=== PATIENT | female | born 2000 | race Caucasian/White ===

== ENCOUNTER 2022-06-11 07:22 | Inpatient (IN) ==
[2022-06-11] MEDS ORDERED: OXYTOCIN 30 UNITS/500 ML BAG IV PRN ×4 (07:57→20:08)
[2022-06-11] MEDS ORDERED: LIDOCAINE 1% LOCAL 20 ML VIAL INFIL PRN (07:57)
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
[2022-06-11 08:31] LABS: Hematocrit (blood only) 35.4 % (34.1-44.9); Hemoglobin 11.9 g/dl (12.0-16.0); Mean Corpuscular Hemoglobin 30.8 pg (25.0-34.0); Mean Corpuscular Hgb Conc 33.6 g/dL (32.0-36.0); Mean Corpuscular Volume 91.7 fL (80.0-100.0); Mean Platelet Volume 10.7 fL (9.4-12.3); Platelet Count 207 K/uL (130-400); RDW Coefficient of Variation 13.3 % (11.5-14.5); RDW Standard Deviation 44.5 fL (36.4-46.3); Red Blood Count 3.86 M/uL (3.93-5.22)
--- NOTE | 2022-06-11 09:01 | Communication Note ---
Date of Service: June 11, 2022 covid negative. Verbal consent obtained to place mello for ripening. speculum placed, mello threaded through the cervix. inflated wtih 35cc sterile water. speculum removed. tolerated well.
[2022-06-11] MEDS: LACTATED RINGER'S 1,000 ML IV PRN ×2 (09:28→15:58)
--- NOTE | 2022-06-11 14:49 | Labor Progress Brief Note ---
Date of Service June 11, 2022 Subjective patient noting some contractions, tolerating well. Assessment & Plan (1) Encounter for induction of labor: Plan continue to increase pit now by 2mU. fetus category one. epidural on demand. plan arom at some point. Admission and Anticipated Discharge Date Admission Date: June 11, 2022 Physical Exam Physical Exam: pulled gently on the bulb and it came out cx--3/50/-2/post--still hard to reach toco--q2-4min, pit at 7 efm--130s wtih mod variability, accels to 160s, no decels Results & Data ([facility]) Vital Signs (Past 12 Hours) Vital Signs Temp Pulse Resp BP 06/11/22 09:31 36.8 C 20 06/11/22 14:22 84 06/11/22 14:22 103/60 06/11/22 13:44 77 06/11/22 13:44 99/54 L 06/11/22 12:05 77 06/11/22 12:05 107/56 L 06/11/22 10:40 96 H 06/11/22 10:40 100/57 L 06/11/22 07:34 36.8 C 94 H 20 105/63 Coding Level of Care Code None Diagnoses Encounter for induction of labor Z34.90
[2022-06-11] MEDS ORDERED: ePHEDrine sulfate 50 MG/ML AMP ONE (15:35)
[2022-06-11] MEDS ORDERED: fentaNYL 2MCG/ML ROPIVACAINE 1.25MG/ML 100 ML BAG EPI ONE (15:36)
[2022-06-11] MEDS ORDERED: BUPIVACAINE 0.25% 30 ML VIAL ONE (15:36)
[2022-06-11] MEDS ORDERED: fentaNYL citrate 100 MCG/2 ML VIAL ONE (15:36)
[2022-06-11] MEDS ORDERED: LIDOCAINE 2%/EPINEPHRINE 1:200,000 20 ML SDV ONE (15:36)
[2022-06-11] MEDS ORDERED: SODIUM CHLORIDE 0.9% INJ 10 ML VIAL ONE (15:36)
[2022-06-11] MEDS ORDERED: NALOXONE HCL 1 MG in SODIUM CHLORIDE 0.9% 1000ML 1,000 ML IV PRN (15:49)
[2022-06-11] MEDS ORDERED: diphenhydrAMINE 50 MG/ML VIAL IV PRN (15:49)
[2022-06-11] MEDS ORDERED: ePHEDrine sulfate 50 MG/ML AMP IV PRN (15:49)
[2022-06-11] MEDS ORDERED: NALOXONE HCL 0.4 MG/1 ML VIAL/CARP IV PRN (15:49)
[2022-06-11] MEDS ORDERED: NALBUPHINE HCL INJ 10 MG/ML AMP IV PRN (15:49)
[2022-06-11] MEDS ORDERED: fentaNYL 2MCG/ML ROPIVACAINE 1.25MG/ML 100 ML BAG EPI PRN (15:49)
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
--- NOTE | 2022-06-11 17:43 | Labor Progress Brief Note ---
Date of Service June 11, 2022 Subjective comfortable with epidural Assessment & Plan (1) Encounter for induction of labor: Plan continue current management. fetus category one. anticipate . Admission and Anticipated Discharge Date Admission Date: June 11, 2022 Physical Exam Physical Exam: cx--75/-2, arom--clear toco--q2-3min, pit at 9 efm--130s with mod variability, small accels, no decels Results & Data ([facility]) Vital Signs (Past 12 Hours) Vital Signs Temp Pulse Resp BP 06/11/22 09:31 36.8 C 20 06/11/22 14:22 84 06/11/22 14:22 103/60 06/11/22 13:44 77 06/11/22 13:44 99/54 L 06/11/22 12:05 77 06/11/22 12:05 107/56 L 06/11/22 10:40 96 H 06/11/22 10:40 100/57 L 06/11/22 07:34 36.8 C 94 H 20 105/63 Coding Level of Care Code None Diagnoses Encounter for induction of labor Z34.90
[2022-06-11] MEDS ORDERED: HYDROCORTISONE ACETATE 25 MG SUPP PR PRN (20:08)
[2022-06-11] MEDS ORDERED: BENZOCAINE 20% AER SPR 82.5 GM CAN EXT PRN (20:08)
[2022-06-11] MEDS ORDERED: DIPHTHERIA/TETANUS/PERTUSSIS 0.5 ML SYR/VIAL IM ONE (20:08)
[2022-06-11] MEDS ORDERED: IBUPROFEN 600 MG TAB PO PRN (20:08)
[2022-06-11] MEDS ORDERED: ACETAMINOPHEN 325 MG TAB PO PRN (20:08)
[2022-06-11] MEDS ORDERED: bisacodyL 10 MG SUPP PR PRN (20:08)
--- NOTE | 2022-06-11 20:13 | Delivery Summary ---
Vaginal Delivery Summary Date of Service June 11, 2022 Vaginal Delivery Summary Pre-operative Diagnosis: at 39 4/7 weeks elective induction Post-operative Diagnosis: same Procedure: mello bulb for cervical ripening pitocin induction epidural arom right labial lac and repair EBL: 300cc Anesthesia: epidural Procedure: Patient presented to labor and delivery for elective induction. She required a mello for cervical ripening and after bulb placed, low dose pitocin started. When bulb removed, increased pit. Patient got epidural and then arom at 5cm. Progressed to c/c/+2. The patient pushed for 2 contractions to deliver a viable male infant in lorenzo position. The nose and mouth were bulb suctioned on the perineum and the rest of the was then delivered without difficulty. A loose nuchal cord x 1 delivered. The baby was vigorous. The nose and mouth were again bulb suctioned and the was placed in the maternal abdomen for drying and attention. Cord was clamped and cut at approximately one minute of life. Cord blood and segment obtained. Placenta delivered spontaneous, intact with a three vessel cord. Cervix/sulci/rectum/perineum were intact. A small right labial laceration was repaired in the normal standard fashion. Hemostasis obtained with dilute pitocin and fundal massage. Apgars were 8/9. Mother and baby doing well at the end of the delivery. [facility] [place] Vaginal Delivery Charge Delivery Type Details: [facility] [place]
--- NOTE | 2022-06-12 00:34 | Anesthesia Procedure Note ---
Date of Service June 12, 2022 Anesthesia Post Epidural Note Vital Signs Vital Signs: Temp Pulse Resp BP Pulse Ox O2 Del Method 36.7 C 86 18 106/78 97 06/11/22 23:00 06/11/22 23:00 06/11/22 23:00 06/11/22 23:00 06/11/22 23:00 06/11/22 23:00 Pain Intensity Back: Pain Intensity: 3 Notes Mental Status: alert / awake / arousable and participated in evaluation Nausea / Vomiting: adequately controlled Pain: adequately controlled Airway Patency, RR, SpO2: stable & adequate BP & HR: stable & adequate Hydration State: stable & adequate Neuraxial Anesthesia: was administered and sensory block resolved Anesthetic Complications: no major complications apparent and Pt Satisfied with anesthetic care Epidural: Removed without complications and With tip intact
[2022-06-12 06:40] LABS: Hematocrit (blood only) 36.1 % (34.1-44.9)
--- NOTE | 2022-06-12 08:12 | Obstetrical Progress Note ---
Date of Service June 12, 2022 Assessment & Plan (1) Vaginal delivery: Plan Doing well. Routine care. restart meds. Day #:: 1 Subjective Ambulation: ambulating normally Voiding: no voiding problems Passing Gas:: Yes Diet Tolerance:: regular diet Lochia:: Small Feeding Type:: bottle feeding (pumping breasts and feeding with bottle) Physical Exam Constitutional WD/WN, vitals as above Respiratory normal respiratory effort, lungs clear to auscultation Cardiovascular RRR, no murmur, no edema Extremities: no calf tenderness and no edema Gastrointestinal (Abdomen) soft, nt, nd ff/nt 2 below u Psychiatric A+Ox3, euthymic affect Results & Data ([facility]) Vital Signs (Past 12 Hours) Vital Signs Temp Pulse Pulse Pulse Resp BP BP 06/12/22 03:02 36.9 C 81 16 102/68 06/11/22 23:00 36.7 C 91 H 18 106/78 06/11/22 23:00 36.9 C 86 16 106/54 L 06/11/22 22:05 101 H 18 106/58 L 06/11/22 21:35 100 H 20 113/61 06/11/22 21:05 88 18 98/60 L 06/11/22 20:50 90 18 101/62 06/11/22 20:35 18 101/54 L 06/11/22 20:20 18 102/56 L 06/11/22 22:07 101 H 06/11/22 22:07 106/58 L 06/11/22 21:52 97 H 06/11/22 21:52 97/51 L Pulse Ox O2 Del Method 06/12/22 03:02 94 Room Air 06/11/22 23:00 Room Air 06/11/22 23:00 97 Room Air 06/11/22 22:05 06/11/22 21:35 06/11/22 21:05 06/11/22 20:50 06/11/22 20:35 06/11/22 20:20 06/11/22 22:07 06/11/22 22:07 06/11/22 21:52 06/11/22 21:52
[2022-06-12] MEDS: PRENATAL VITAMIN 1 TAB PO SCH (08:19)
[2022-06-12] MEDS: oxyCODONE/ACETAMINOPHEN 5mg/325mg TAB PO PRN ×3 (08:19→23:16)
[2022-06-12] MEDS: DOCUSATE SODIUM 100 MG CAP PO SCH ×2 (08:19→20:28)
[2022-06-12] MEDS: lamoTRIgine 25 MG TAB PO SCH ×2 (11:24→20:28)
[2022-06-12] MEDS: busPIRone 5 MG TAB PO SCH ×2 (11:24→21:00)
[2022-06-12] MEDS ORDERED: busPIRone 5 MG TAB PO SCH (12:00)
[2022-06-12] MEDS ORDERED: lamoTRIgine 25 MG TAB PO SCH (12:00)
[2022-06-12] MEDS ORDERED: bisacodyL 5 MG TABEC PO SCH (20:00)
--- NOTE | 2022-06-13 07:37 | Obstetrical Progress Note ---
Date of Service June 13, 2022 Assessment & Plan (1) Encounter for care and examination after delivery: satisfactory progress will discharge to home follow up in 6 weeks. Subjective Ambulation: ambulating normally Voiding: no voiding problems Passing Gas:: Yes Diet Tolerance:: regular diet Lochia:: Small Feeding Type:: breast feeding (pumping ) cramping much less this morning Review of Systems All systems reviewed & are unremarkable except as noted in HPI & below Physical Exam Constitutional WD/WN, vitals as above Psychiatric A+Ox3, euthymic affect Genitourinary OB Exam Abdomen: + fundal height Fundus: + firm and + relation to umbilicus (2 below U) Results & Data ([facility]) Vital Signs (Past 12 Hours) Vital Signs Temp Pulse Resp BP Pulse Ox O2 Del Method 06/12/22 23:11 98.4 F 72 18 102/63 96 Room Air
[2022-06-13] MEDS: PRENATAL VITAMIN 1 TAB PO SCH (09:12)
[2022-06-13] MEDS: DOCUSATE SODIUM 100 MG CAP PO SCH (09:12)
[2022-06-13] MEDS: lamoTRIgine 25 MG TAB PO SCH (09:12)
[2022-06-13] MEDS: busPIRone 5 MG TAB PO SCH (09:13)
== END 2022-06-13 10:30 | disposition home or self-care (01) | DRG 807 ==
LOC: 4S1 07:22 → 4E2 22:27
DX: O70.0 First degree perineal laceration during delivery; Z88.8 Allergy status to other drugs, medicaments and biological substances; Z37.0 Single live birth; O69.81X0 Labor and delivery complicated by cord around neck, without compression, not applicable or unspecified; F31.9 Bipolar disorder, unspecified; F41.9 Anxiety disorder, unspecified; Z3A.39 39 weeks gestation of pregnancy; F17.210 Nicotine dependence, cigarettes, uncomplicated; O99.344 Other mental disorders complicating childbirth; O99.334 Smoking (tobacco) complicating childbirth; Z79.899 Other long term (current) drug therapy